=== PATIENT | female | born 1990 | race Caucasian/White ===

== ENCOUNTER 2016-12-04 04:50 | Emergency (ER) | payer SELFPAY ==
--- NOTE | 2016-12-04 05:21 | ED ---
General Adult HPI - General Chief complaint: Upper Respiratory Infection Stated complaint: Congestion Time Seen by Provider: 12/04/16 05:16 Source: patient, RN notes reviewed Mode of arrival: ambulatory Limitations: no limitations - History of Present Illness Initial comments: Patient is a pleasant 26-year-old female presenting to the emergency department complaining of cough and fever and congestion. Onset of symptoms was yesterday. Patient has family members with similar symptoms. Patient has congestion in her sinuses and to her head. Patient has some drainage. Patient has occasional cough. Cough did at one time have a little bit of yellow sputum. Patient did have fever earlier that seemed to improve. No difficulty in breathing. No abdominal pain. No sore throat. - Related Data Previous Rx's Medication Instructions Recorded Oseltamivir [Tamiflu] 75 mg PO Q12HR #10 cap 12/04/16 Allergies Allergy/AdvReac Type Severity Reaction Status Date / Time amoxicillin [From Augmentin] Allergy Mild Rash/Hives Verified 12/04/16 04:57 cefaclor [From Ceclor] Allergy Mild Rash/Hives Verified 12/04/16 04:57 clavulanic acid Allergy Mild Rash/Hives Verified 12/04/16 04:57 [From Augmentin] Sulfa (Sulfonamide Allergy Mild Rash/Hives Verified 12/04/16 04:57 Antibiotics) cefixime [From Suprax] Allergy Rash/Hives Verified 12/04/16 04:57 Review of Systems ROS Statement: Those systems with pertinent positive or pertinent negative responses have been documented in the HPI. ROS Other: All systems not noted in ROS Statement are negative. Constitutional: Reports: fever, chills Eyes: Denies: eye pain ENT: Reports: congestion. Denies: ear pain, throat pain Respiratory: Reports: cough. Denies: dyspnea Cardiovascular: Denies: chest pain Endocrine: Denies: fatigue Gastrointestinal: Denies: abdominal pain Genitourinary: Denies: dysuria Musculoskeletal: Denies: back pain Skin: Denies: rash Neurological: Denies: weakness Past Medical History Past Medical History: No Reported History History of Any Multi-Drug Resistant Organisms: None Reported Past Surgical History: Tonsillectomy Past Psychological History: No Psychological Hx Reported Smoking Status: Current every day smoker Past Alcohol Use History: None Reported Past Drug Use History: None Reported General Exam Limitations: no limitations General appearance: alert, in no apparent distress Head exam: Present: atraumatic Eye exam: Present: normal appearance, PERRL ENT exam: Present: normal oropharynx, other (Mild tenderness over the sinuses) Neck exam: Present: normal inspection. Absent: meningismus Respiratory exam: Present: normal lung sounds bilaterally Cardiovascular Exam: Present: regular rate, normal rhythm GI/Abdominal exam: Present: soft. Absent: tenderness Extremities exam: Present: normal inspection. Absent: pedal edema, calf tenderness Neurological exam: Present: alert Psychiatric exam: Present: normal affect, normal mood Skin exam: Absent: rash Course Vital Signs 12/04/16 04:53 Temperature 97.9 F Pulse Rate 113 H Respiratory 20 Rate Blood Pressure 116/75 O2 Sat by Pulse 99 Oximetry Medical Decision Making - Medical Decision Making Patient reevaluated in updated. - Lab Data Lab Results 12/04/16 Range/Units 05:21 Influenza Type A RNA Not Detected (Not Detectd) Influenza Type B (PCR) Detected H (Not Detectd) - Radiology Data Radiology results: image reviewed (Chest x-ray shows no acute process.) Disposition Clinical Impression: Influenza Disposition: HOME SELF-CARE Condition: Stable Instructions: Influenza (ED) Additional Instructions: Please follow-up with primary care physician in the next couple of days for recheck. Return for uncontrolled fevers, not tolerating fluids, worsening symptoms or other concerns or difficulty in breathing. [id number] Tylenol and Motrin as needed. Prescriptions: Oseltamivir [Tamiflu] 75 mg PO Q12HR #10 cap Referrals: Doe Fair DO [Primary Care Provider] - 1-2 days
[2016-12-04 07:06] VITALS: BP 121/75; PULSE 95; RESP 18; TEMP 98.3
--- NOTE | 2016-12-04 14:18 | XR ---
EXAM: XR Chest, 2 Views. CLINICAL HISTORY: Reason: cough TECHNIQUE: Frontal and lateral views of the chest. COMPARISON: No relevant prior studies available. FINDINGS: Lungs: Unremarkable. No consolidation. Pleural spaces: Unremarkable. No pneumothorax. Heart: Unremarkable. No cardiomegaly. Mediastinum: Unremarkable. Bones: Unremarkable. No acute fracture. IMPRESSION: Normal chest. No source of the patient's cough detected.
== END 2016-12-04 07:04 | disposition home or self-care (01) ==
LOC: EC 04:50
DX: J11.1 Influenza due to unidentified influenza virus with other respiratory manifestations (principal); F17.200 Nicotine dependence, unspecified, uncomplicated; Z88.0 Allergy status to penicillin; Z88.1 Allergy status to other antibiotic agents; Z88.2 Allergy status to sulfonamides; Z90.89 Acquired absence of other organs
CPT/HCPCS: 71020; 87502; 99283

== ENCOUNTER 2016-12-05 22:57 | Emergency (ER) | payer SELFPAY ==
[2016-12-05 23:08] VITALS: TEMP 101
[2016-12-05 23:56] LABS: Appearance,Urine Cloudy (Clear); Bacteria,Urine Rare /hpf; Bilirubin,Urine Negative (Negative); Glucose,Urine (UA) Negative (Negative); Ketones,Urine 2+ (Negative); Leukocyte Esterase,Urine Negative (Negative); Mucus,Urine Rare /hpf; Nitrite,Urine Negative (Negative); PH, Urine 6.5 (5.0-8.0); Particle Count 6569; Protein,Urine 1+ (Negative); RBC,Urine 5 /hpf (0-5); Specific Gravity,Urine 1.015 (1.001-1.035); Squamous Epithelial Cell,Urine 4 /hpf (0-4); UA Billing (MACRO vs. MICRO) MICRO; WBC,Urine 3 /hpf (0-5)
[2016-12-05] MEDS ORDERED: IBUPROFEN 600 MG TAB PO STA (23:59)
--- NOTE | 2016-12-06 00:02 | ED ---
Fever HPI - General Chief Complaint: Fever Stated Complaint: Fever, Flu Time Seen by Provider: 12/05/16 23:15 Source: patient, RN notes reviewed Mode of arrival: ambulatory Limitations: no limitations - History of Present Illness Initial Comments: Patient is 26-year-old female presents to the emergency room for evaluation of fever. Patient states she was here yesterday and was diagnosed with the flu. Patient states she was given Tamiflu but did not get her prescription filled. Patient states she's only been taking Tylenol with no relief of fever. Patient stated she hasn't been taking any ibuprofin because she is not sure if she is . Patient states her last menstrual period was the end of last month. Patient denies abdominal pain, nausea, vomiting. Patient states she does have a headache. Patient denies any worsening symptoms from yesterday. - Related Data Home Medications Medication Instructions Recorded Confirmed Acetaminophen Tab [Tylenol Tab] 650 mg PO Q4H PRN 12/05/16 12/05/16 Allergies Allergy/AdvReac Type Severity Reaction Status Date / Time amoxicillin [From Augmentin] Allergy Mild Rash/Hives Verified 12/05/16 23:15 cefaclor [From Ceclor] Allergy Mild Rash/Hives Verified 12/05/16 23:15 clavulanic acid Allergy Mild Rash/Hives Verified 12/05/16 23:15 [From Augmentin] Sulfa (Sulfonamide Allergy Mild Rash/Hives Verified 12/05/16 23:15 Antibiotics) cefixime [From Suprax] Allergy Rash/Hives Verified 12/05/16 23:15 Review of Systems ROS Statement: Those systems with pertinent positive or pertinent negative responses have been documented in the HPI. ROS Other: All systems not noted in ROS Statement are negative. Past Medical History Past Medical History: No Reported History History of Any Multi-Drug Resistant Organisms: None Reported Past Surgical History: Tonsillectomy Past Psychological History: No Psychological Hx Reported Smoking Status: Current every day smoker Past Alcohol Use History: None Reported Past Drug Use History: None Reported General Exam - General Exam Comments Initial Comments: Laying in exam room, no acute distress. Limitations: no limitations General appearance: alert, in no apparent distress Head exam: Present: atraumatic, normocephalic, normal inspection Eye exam: Present: normal appearance ENT exam: Present: normal exam, normal oropharynx, mucous membranes moist, TM's normal bilaterally, normal external ear exam Neck exam: Present: normal inspection Respiratory exam: Present: normal lung sounds bilaterally. Absent: respiratory distress Cardiovascular Exam: Present: normal rhythm, tachycardia, normal heart sounds GI/Abdominal exam: Present: soft, normal bowel sounds. Absent: distended, tenderness, guarding, rebound, rigid Extremities exam: Present: normal inspection Back exam: Present: normal inspection Neurological exam: Present: alert, oriented X3, CN II-XII intact, normal gait Psychiatric exam: Present: normal affect, normal mood Skin exam: Present: warm, dry, intact, normal color. Absent: rash Course Vital Signs 12/05/16 12/06/16 23:04 00:12 Temperature 101 F H 101 F H Pulse Rate 115 H 108 H Respiratory 20 16 Rate Blood Pressure 116/73 108/69 O2 Sat by Pulse 97 97 Oximetry Medical Decision Making - Medical Decision Making Patient is a 26-year-old female presents to the emergency room for evaluation of fever. Patient states she hasn't been taking ibuprofen along with Tylenol for fever because she's afraid she's . Urine test negative. Discussed with patient that she can alternate Tylenol and Motrin for fever. Patient states she understands her diagnosis discussed with her. Return parameters discussed. Case discussed with Dr. Ladd. - Lab Data Lab Results 12/05/16 12/05/16 Range/Units 23:43 23:43 Urine Color Yellow Urine Appearance Cloudy H (Clear) Urine pH 6.5 (5.0-8.0) Ur Specific [place] 1.015 (1.001-1.035) Urine Protein 1+ H (Negative) Urine Glucose (UA) Negative (Negative) Urine Ketones 2+ H (Negative) Urine Blood Negative (Negative) Urine Nitrate Negative (Negative) Urine Bilirubin Negative (Negative) Urine Urobilinogen 2.0 (<2.0) mg/dL Ur Leukocyte Esterase Negative (Negative) Urine RBC 5 (0-5) /hpf Urine WBC 3 (0-5) /hpf Ur Squamous Epith Cells 4 (0-4) /hpf Urine Bacteria Rare H (None) /hpf Urine Mucus Rare H (None) /hpf Urine HCG, Qual Not Detected (Not Detectd) Disposition Clinical Impression: Fever, Influenza Disposition: HOME SELF-CARE Condition: Good Instructions: Influenza (ED) Additional Instructions: Alternate Tylenol and Motrin. Drink plenty of fluids. Please follow up with primary care provider in 1-2 days. If any new symptom arises or symptoms worsen , return to ER as soon as possible. Referrals: Doe Fair DO [Primary Care Provider] - 1-2 days Time of Disposition: 00:02
[2016-12-06 00:13] VITALS: BP 108/69; PULSE 108; RESP 16
== END 2016-12-06 00:12 | disposition home or self-care (01) ==
LOC: EC 22:57
DX: J11.1 Influenza due to unidentified influenza virus with other respiratory manifestations (principal); Z88.1 Allergy status to other antibiotic agents; Z88.0 Allergy status to penicillin; Z88.2 Allergy status to sulfonamides; F17.200 Nicotine dependence, unspecified, uncomplicated
CPT/HCPCS: 81001; 81025; 99283

== ENCOUNTER 2018-07-07 02:36 | Emergency (ER) | payer OTHER ==
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
[2018-07-07 04:47] VITALS: BP 135/65; PULSE 92; RESP 16; TEMP 98
== END 2018-07-07 04:46 | disposition home or self-care (01) ==
LOC: EC 02:36
DX: S09.90XA Unspecified injury of head, initial encounter (principal); M54.2 Cervicalgia; R40.2412 Glasgow coma scale score 13-15, at arrival to emergency department; L53.8 Other specified erythematous conditions; F17.200 Nicotine dependence, unspecified, uncomplicated; Z88.0 Allergy status to penicillin; Z88.1 Allergy status to other antibiotic agents; Z88.2 Allergy status to sulfonamides; Y04.0XXA Assault by unarmed brawl or fight, initial encounter
CPT/HCPCS: 70450; 70498; 99284; Q9967